=== PATIENT | female | born 1965 ===

== ENCOUNTER 2018-01-18 09:05 | Day surgery (SDC) | payer OTHER ==
[2018-01-18 09:26] VITALS: BMI 25.8
[2018-01-18] MEDS ORDERED: Lactated Ringer's 500 ML IV ONE (09:33)
[2018-01-18] MEDS ORDERED: Propofol 10 mg/ml Inj (20 ML) ONE (11:22)
[2018-01-18 12:07] VITALS: TEMP 97; O2SAT 100
[2018-01-18 12:24] VITALS: BP 111/66; PULSE 86; RESP 18
== END 2018-01-18 12:45 | disposition home or self-care (01) ==
LOC: H.ENDO 09:05
PROVIDERS: ATTEND Internal Medicine Gastroenterology
DX: Z12.11 Encounter for screening for malignant neoplasm of colon (principal); K64.8 Other hemorrhoids; K31.89 Other diseases of stomach and duodenum; K30 Functional dyspepsia
CPT/HCPCS: 43239; 45378; 88305; J2001; J2704; J7120